=== PATIENT | female | born 1995 | race Asian ===

== ENCOUNTER 2018-11-01 18:57 | Emergency (ER) | payer BC ==
[2018-11-01] MEDS ORDERED: Sucralfate TAB* 1 GM PO ONE (20:04)
[2018-11-01] MEDS ORDERED: Ibuprofen PED LIQ 100 MG/5 ML UDC PO ONE (20:04)
[2018-11-01] MEDS ORDERED: Lidocaine 2% VISCOUS* 15 ML UDC PO ONE (20:04)
--- NOTE | 2018-11-01 20:30 | ED ---
Throat Pain/Nasal Congestion - HPI Summary HPI Summary: Pt is a 23 y/o female who presents to the ED c/o throat pain. She states at 18: 30 today she was eating an apple when she choked on it. Pt feels as if she bit part of the core and there is something in her throat. She tried to eat rice afterwards to help, but she vomited some back up. Pt has spit up some blood. She denies any abdominal pain or difficulty breathing. LNMP 10/07/18. - History of Current Complaint Chief Complaint: EDThroatPain Time Seen by Provider: 11/01/18 19:38 Hx Obtained From: Patient Onset/Duration: Sudden Onset, Lasting Hours - 18:30, Still Present Associated Signs And Symptoms: Positive: FB Sensation Cough: None Related History: Other (Noted In Comments) - Choked on apple - Allergies/Home Medications Allergies/Adverse Reactions: Allergies Allergy/AdvReac Type Severity Reaction Status Date / Time alcohol Allergy Itching Verified 11/01/18 19:14 Home Medications: Home Medications NK [No Home Medications Reported] 11/01/18 [History Confirmed 11/01/18] PMH/Surg Hx/FS Hx/Imm Hx Endocrine/Hematology History: Denies: Hx Diabetes Cardiovascular History: Denies: Hx Hypertension Infectious Disease History: No Infectious Disease History: Denies: Traveled Outside the [place] in Last 30 Days - Family History Known Family History: Negative: Diabetes - Social History Alcohol Use: None Hx Substance Use: No Substance Use Type: Reports: None Hx Tobacco Use: No Smoking Status (MU): Never Smoked Tobacco Review of Systems Positive: Sore Throat Negative: Other - difficulty breathing Negative: Abdominal Pain All Other Systems Reviewed And Are Negative: Yes Physical Exam - Summary Physical Exam Summary: Appearance: Well appearing, no pain distress Skin: warm, dry, reflects adequate perfusion Head/face: normal Eyes: EOMI, VANIA ENT: mucous membranes moist, no redness, blood, or mucus in posterior pharynx or tonsils Neck: supple, non-tender Respiratory: CTA, breath sounds present Cardiovascular: RRR, pulses symmetrical Abdomen: non-tender, soft Bowel Sounds: present Musculoskeletal: normal, strength/ROM intact Neuro: normal, sensory motor intact, A&Ox3 Triage Information Reviewed: Yes Vital Signs On Initial Exam: Initial Vitals Temp Pulse Resp BP Pulse Ox 100.0 F 105 16 144/85 99 12/31/18 19:10 11/01/18 19:10 11/01/18 19:10 11/01/18 19:10 11/01/18 19:10 Vital Signs Reviewed: Yes Diagnostics - Vital Signs Vital Signs Temp Pulse Resp BP Pulse Ox 11/01/18 19:59 98.7 F 11/01/18 19:10 100.0 F 105 16 144/85 99 - Laboratory Lab Statement: Any lab studies that have been ordered have been reviewed, and results considered in the medical decision making process. - Radiology Soft Tissue Neck XR Radiology Interpretation Completed By: ED Physician Summary of Radiographic Findings: Normal soft tissue. No foreign body seen. Pending official radiology report. Re-Evaluation - Re-Evaluation First Eval Re-Evaluation Time: 20:35 Change: Unchanged Comment: Nothing visualized with the glidescope. EENT Course/Dx - Course Course Of Treatment: Nurse's notes reviewed. There is no visible area of abrasion or laceration seen in the oropharynx or in the larynx. This was examined with the Glidescope after numbing with visc lidocaine/cetacaine. Her symptoms were improved with medication. There is no further vomiting or hematemesis. Patient was able to tolerate liquids and she was discharged in good condition. X-ray was negative for any foreign body. - Differential Diagnoses Differential Diagnoses: Other - Esophageal perforation, laryngeal foreign body, abrasion of the upper airway - Diagnoses Provider Diagnoses: Esophageal abrasion Discharge - Sign-Out/Discharge Documenting (check all that apply): Patient Departure - Discharge - Discharge Plan Condition: Improved Disposition: HOME Patient Education Materials: Esophageal Foreign Body (ED) Referrals: [facility] [Provider Group] Additional Instructions: Use children's ibuprofen and/or children's Benadryl for any ongoing discomfort. Return with coughing up/vomiting blood, increased pain, difficulty breathing, worse, new symptoms or other concerns as discussed. Follow-up with [facility], [facility] as needed. - Billing Disposition and Condition Condition: IMPROVED Disposition: Home - Attestation Statements Document Initiated by Scribe: Yes Documenting Scribe: Tara Egan Provider For Whom Scribe is Documenting (Include Credential): Tung Vines MD Scribe Attestation: Tara Tinajero, scribed for Tung Vines MD on 11/01/18 at 2254. Scribe Documentation Reviewed: Yes Provider Attestation: The documentation as recorded by the scribe, Tara Egan accurately reflects the service I personally performed and the decisions made by me, Tung Vines MD Status of Scribe Document: Viewed
[2018-11-01] MEDS ORDERED: Benzocaine/Butamben/Tetracain (CETACAINE - SINGLE USE) 5 gm TOPICAL ONE (20:32)
[2018-11-01] MEDS ORDERED: Dexamethasone TAB* 4 MG PO ONE (20:41)
[2018-11-01 22:01] VITALS: BP 125/84
== END 2018-11-01 20:59 | disposition home or self-care (01) ==
LOC: ED 18:57
DX: S27.818A Other injury of esophagus (thoracic part), initial encounter (principal); X58.XXXA Exposure to other specified factors, initial encounter; Y92.9 Unspecified place or not applicable
CPT/HCPCS: 70360; 99282; A9270-GY; J8540